=== PATIENT | female | born 1960 | race Caucasian/White ===

== ENCOUNTER 2019-01-03 17:10 | Emergency (ER) | payer BC ==
[~2019-01-03] VITALS: Ht 167.6 cm; Wt 110.0 kg
[~2019-01-03 17:10] MED LIST: ALEVE 220MG220 MG PO; CELEBREX 200MG200 MG PO; CLARITIN 1010 MG/TAB PO; LISINOPRIL20 MG PO; LYSINE 500500 MG/TAB PO; NEURONTIN100 MG/CAP PO; NORCO 325 MG-7.1 TAB PO; PAXIL 20MG20 MG PO; PAXIL CR37.5 MG PO; PRINZIDE 12.5 M1 TAB PO; ULTRAM 50MG TAB50 MG PO
[2019-01-03 17:14] VITALS: PULSE 65; TEMP 98.7
[2019-01-03] MEDS ORDERED: SINGULAIR 5M5 MG/TAB PO (17:14)
[2019-01-03 17:30] LABS: BASO % 0.6 % (0.0-2.0); EOS # 0.1 (0.0-0.7); GRAN # 2.3 (1.4-6.5); GRAN % 36.3 % (42.2-75.2); HEMOGLOBIN 11.5 g/dl (12.5-16.0); LYMPH # 3.3 (1.2-3.4); LYMPH % 51.7 % (20.0-51.0); MEAN CELL VOLUME 84 fl (80.0-100.0); MEAN CORPUSCULAR HEMOGLOBIN 28 pg (27.0-31.0); MEAN CORPUSCULAR HGB CONC 34 g/dl (33.0-37.0); MEAN PLATELET VOLUME 10.4 fl (7.4-10.4); MONO # 0.6 (0.1-0.6); MONO % 9.1 % (1.7-9.3); PLATELET COUNT 246 K/mm3 (130-400); RED BLOOD COUNT 4.05 M/mm3 (4.10-5.30); REDCELL DISTRIBUTION WIDTH-CV 13.4 % (11.5-14.5)
[2019-01-03 17:36] LABS: ALANINE AMINOTRANSFERASE 26 U/L (9-52); ALBUMIN 4.3 gm/dL (3.5-5.0); ALKALINE PHOSPHATASE 100 U/L (50-136); ANION GAP 9 mmol/L (7-16); AST,SGOT 39 U/L (15-37); BILIRUBIN,TOTAL 0.3 mg/dL (0.0-1.0); BLOOD UREA NITROGEN 12 mg/dL (7-17); CALCIUM 9.3 mg/dL (8.4-10.2); CARBON DIOXIDE 27 mmol/L (22-30); CHLORIDE 103 mmol/L (98-107); CREATININE, serum 0.67 (0.52-1.25); GLUCOSE 85 mg/dL (74-106); HEMATOCRIT 33.8 % (37.0-47.0); LIPASE 138 U/L (23-300); POTASSIUM 3.6 mmol/L (3.4-5.0); SODIUM 138 mmol/L (137-145); TOTAL PROTEIN 7.3 gm/dL (6.4-8.2)
[2019-01-03 17:49] LABS: TROPONIN-I < 0.012 ng/mL (0.000-0.035)
[2019-01-03] MEDS ORDERED: ANTIVERT 25MG25 MG PO (19:26)
== END 2019-01-03 20:20 | disposition home or self-care (01) ==
LOC: COL.ER 17:10
PROVIDERS: Emergency Medicine
DX: R07.89 Other chest pain (principal); R51 Headache; R42 Dizziness and giddiness
CPT/HCPCS: J2060; J7030

== ENCOUNTER 2020-11-23 15:41 | Emergency (ER) | payer BC ==
[~2020-11-23] VITALS: Ht 170.2 cm; Wt 108.6 kg
[~2020-11-23 15:41] MED LIST changes: +ANTIVERT 25MG25 MG PO; +SINGULAIR 5M5 MG/TAB PO
[2020-11-23 15:44] VITALS: TEMP 97.9
[2020-11-23 16:23] LABS: BASO # 0.1 (0.0-0.2); BASO % 0.5 % (0.0-2.0); EOS # 0.1 (0.0-0.7); EOS % 1.1 % (0-4.0); GRAN # 5.8 (1.4-6.5); HEMOGLOBIN 13.2 g/dl (12.5-16.0); LYMPH # 2.7 (1.2-3.4); LYMPH % 29.1 % (20.0-51.0); MEAN CELL VOLUME 84 fl (80.0-100.0); MEAN CORPUSCULAR HEMOGLOBIN 28 pg (27.0-31.0); MEAN CORPUSCULAR HGB CONC 34 g/dl (33.0-37.0); MEAN PLATELET VOLUME 10.5 fl (7.4-10.4); MONO # 0.6 (0.1-0.6); MONO % 6.8 % (1.7-9.3); PLATELET COUNT 281 K/mm3 (130-400); RED BLOOD COUNT 4.65 M/mm3 (4.10-5.30); REDCELL DISTRIBUTION WIDTH-CV 13.4 % (11.5-14.5)
[2020-11-23 16:31] LABS: ALANINE AMINOTRANSFERASE 22 U/L (4-34); ALBUMIN 4.3 gm/dL (3.5-5.0); ALKALINE PHOSPHATASE 89 U/L (50-136); ANION GAP 12 mmol/L (7-16); AST,SGOT 34 U/L (15-37); BILIRUBIN,TOTAL 0.4 mg/dL (0.0-1.0); BLOOD UREA NITROGEN 13 mg/dL (7-17); CALCIUM 9.3 mg/dL (8.4-10.2); CARBON DIOXIDE 21 mmol/L (22-30); CHLORIDE 107 mmol/L (98-107); CREATININE, serum 1.05 (0.52-1.25); GLUCOSE 109 mg/dL (74-106); SODIUM 139 mmol/L (137-145); TOTAL PROTEIN 7.5 gm/dL (6.4-8.2)
[2020-11-23 16:45] LABS: TROPONIN-I < 0.012 ng/mL (0.000-0.035)
[2020-11-23 16:47] LABS: PROLACTIN 46.6 ng/mL (3.0-18.6)
[2020-11-23 17:10] LABS: LIPASE 284 U/L (23-300)
[2020-11-23 17:43] LABS: COLLECTION METHOD CLEAN CATCH
[2020-11-23] MEDS ORDERED: ZOFRAN ODT4 MG PO (17:59)
[2020-11-23 18:31] LABS: MUCOUS Present /lpf; PH 6 (5-8); SQUAMOUS EPITHELIAL 0-2 /hpf; URINE APPEARANCE Hazy; URINE BACTERIA None Seen /hpf; URINE BILIRUBIN Negative (NEGATIVE); URINE BLOOD Negative (NEGATIVE); URINE COLOR Yellow; URINE GLUCOSE Negative (NEGATIVE); URINE KETONE Negative (NEGATIVE); URINE LEUKOCYTE ESTERASE Negative (NEGATIVE); URINE NITRATE Negative (NEGATIVE); URINE PROTEIN(semi-quant) Negative (NEGATIVE); URINE RBC 0-2 /hpf; URINE UROBILINOGEN Negative (NEGATIVE)
[2020-11-23 18:58] VITALS: BP 135/87; PULSE 72
== END 2020-11-23 18:58 | disposition home or self-care (01) ==
LOC: COL.ER 15:41
PROVIDERS: Nurse Practitioner Primary Care
DX: R56.9 Unspecified convulsions (principal); I10 Essential (primary) hypertension; F41.9 Anxiety disorder, unspecified; Z20.822 Contact with and (suspected) exposure to COVID-19; Z79.899 Other long term (current) drug therapy
CPT/HCPCS: J2550; J7030

== ENCOUNTER → 2023-11-02 | Outpatient (CLI) | payer BC ==
[~2023-11-02] MED LIST changes: +ZOFRAN ODT4 MG PO
== END ==
LOC: MC.RAD 09:55
DX: Z12.31 Encounter for screening mammogram for malignant neoplasm of breast (principal)